=== PATIENT | female | born 1955 | race Caucasian/White ===

== ENCOUNTER 2017-06-27 20:44 | Observation (INO) | payer BC ==
[~2017-06-27] VITALS: Ht 160 cm; Wt 112.0 kg
[~2017-06-27 20:44] MED LIST: ASPI81 PO; ESTR0.053 TD; ISOS30 PO; LEVO50TA4 PO; METO50CR PO; NITR0.4S SL; OMEP20TA PO
[2017-06-27 20:48] VITALS: BP 140/90; PULSE 94; RESP 16; TEMP 97.8; O2SAT 98
[2017-06-27] MEDS ORDERED: OMEP20TA PO (21:14)
[2017-06-27] MEDS ORDERED: ISOS30TA3 PO (21:14)
[2017-06-27] MEDS ORDERED: BIOTCAP PO (21:14)
[2017-06-27] MEDS ORDERED: CALC1TAB87 PO (21:14)
[2017-06-27] MEDS ORDERED: METO100T9 PO (21:14)
[2017-06-27] MEDS ORDERED: VIVE0.05 T-DERMAL (21:14)
[2017-06-27] MEDS ORDERED: ASPI81CH37 CHEW (21:14)
[2017-06-27] MEDS ORDERED: LEVO50TA4 PO (21:14)
--- NOTE | 2017-06-27 21:40 | PD ---
HPI Chief Complaint: Cardiac Complaint Time Seen by Provider: 21:31 Travel History International Travel<30 days: No Contact w/Intl Traveler<30days: No Traveled to known affect area: No History of Present Illness HPI 61 year-old female presents to the emergency department by private transportation the care of her daughter for evaluation of not feeling well with chest discomfort burning in nature with tingling and feeling short of breath. Patient has history of atrial fibrillation and December 2015 underwent cardiac catheterization by her route manager Dr. Keyla palacios which showed minimal coronary vessel disease and normal LV function with recommendation for medical management. Patient was reportedly prescribed sublingual nitroglycerin to use as needed for chest discomfort/chest pain. Patient's symptoms this evening began around 6:30 results spontaneously then recurred at 7:30 at which time she took a sublingual nitroglycerin and her discomfort/pressure of 5/10 in intensity decreased to 3/10 in intensity. Patient denies any pleuritic pain or hemoptysis. Patient's had no lower extremity pain or swelling. Patient's had no fever or chills. Patient states symptoms began while at rest. Patient has had no change in her medications. No recent long distance travel protracted bedrest her surgical procedure. Patient did take one 81 mg aspirin prior to arrival to the emergency department. Patient's had no change in medications. At this time is otherwise unable to describe exacerbating or alleviating factors other than aforementioned. PFSH Past Medical History Narrative Medical Atrial fibrillation mild epicardial coronary artery disease hypertension hypothyroidism hysterectomy cardiac catheterization no tobacco use nursing notes reviewed Hx Anticoagulant Therapy: Yes (ASA 81 MG) Atrial Fibrillation: Yes Cancer: Yes (skin) Cardiovascular Problems: Yes (A.FIB) Chemotherapy: No Congestive Heart Failure: No Cerebrovascular Accident: No Diabetes: No Diminished Hearing: No Endocrine: Yes GERD: No Genitourinary: No Hypertension: Yes Immune Disorder: No Kidney Stones: No Musculoskeletal: No Neurologic: No Psychiatric: No Reproductive: No Respiratory: Yes Immunizations Current: Yes Migraines: No Radiation Therapy: No Renal Failure: No Seizures: No Thyroid Disease: Yes Ulcer: No ?: Not : 2 Para: 2 Past Surgical History AICD: No Gynecologic Surgery: Yes (complete hysterectomy) Hysterectomy: Yes (TOTAL) Insulin Pump: No Joint Replacement: No Pacemaker: No Other Surgery: Yes (see hx) Social History Alcohol Use: No Tobacco Use: No Substance Use: No Allergies-Medications (Allergen,Severity, Reaction): Coded Allergies: No Known Allergies (Verified , 06/27/17) Reported Meds & Prescriptions Reported Meds & Active Scripts Active Reported Omeprazole 20 Mg Tab 20 Mg PO DAILY Aspirin Low Dose (Aspirin) 81 Mg Chew 81 Mg CHEW DAILY Levothyroxine (Levothyroxine Sodium) 50 Mcg Tab 50 Mcg PO DAILY Biotin 5 Mg Cap 5 Mg PO DAILY Calcium 600 with Vitamin D (Calcium Carbonate-Cholecalciferol) 600-400 mg-Unit Tab 1 Tab PO DAILY Metoprolol Succinate ER 24 HR (Metoprolol Succinate) 100 Mg Tab 100 Mg PO DAILY Isosorbide Mononitrate ER (Isosorbide Mononitrate) 30 Mg Kelsey 30 Mg PO DAILY Vivelle-Dot Patch 84 HR (Estradiol) 0.05 Mg/24 Hr Patch 1 Patch T-DERMAL WEEKLY Remove old patch and discard when new patch being placed. Change same days each week. Review of Systems Except as stated in HPI: all other systems reviewed are Neg General / Constitutional: No: Fever, Chills HENT: No: Congestion Cardiovascular: Positive: Chest Pain or Discomfort, No: Palpitations, Diaphoresis, Syncope Respiratory: Positive: Shortness of Breath, No: Cough Gastrointestinal: No: Nausea, Vomiting, Abdominal Pain Genitourinary: No: Flank Pain Musculoskeletal: No: Pain Skin: No Rash Neurologic: No: Weakness Psychiatric: Positive: Anxiety Hematologic/Lymphatic: No: Lymph Node Enlargement Physical Exam Narrative GENERAL: Well-developed well-nourished clinically obese female in no acute distress no respiratory distress SKIN: Warm and dry. HEAD: Normocephalic. EYES: No scleral icterus. No injection or drainage. NECK: Supple, trachea midline. No JVD or lymphadenopathy. CARDIOVASCULAR: Irregular irregular rate and rhythm without murmurs, gallops, or rubs. RESPIRATORY: Breath sounds equal bilaterally. No accessory muscle use. GASTROINTESTINAL: Abdomen soft, non-tender, nondistended. MUSCULOSKELETAL: No cyanosis, or edema. BACK: Nontender without obvious deformity. No CVA tenderness. Data Data Last Documented VS Vital Signs Date Time Temp Pulse Resp B/P (MAP) Pulse Ox O2 Delivery O2 Flow Rate FiO2 06/27/17 20:48 97.8 94 16 140/90 (107) 98 Room Air Orders Orders Electrocardiogram (06/27/17 21:31) Basic Metabolic Panel (Bmp) (06/27/17 21:31) B-Type Natriuretic Peptide (06/27/17 21:31) Ckmb (Isoenzyme) Profile (06/27/17 21:31) Complete Blood Count With Diff (06/27/17 21:31) Magnesium (Mg) (06/27/17 21:31) Prothrombin Time / Inr (Pt) (06/27/17 21:31) Act Partial Throm Time (Ptt) (06/27/17 21:31) Troponin I (06/27/17 21:31) Chest, Single Ap (06/27/17 21:31) Ecg Monitoring (06/27/17:31) Bilateral Bp Monitoring (06/27/17:) Iv Access Insert/Monitor (06/27/17:31) Oximetry (06/27/17 21:31) Oxygen Administration (06/27/17 21:31) Aspirin Chew (Aspirin Chew) (06/27/17 21:45) Sodium Chloride 0.9% Flush (Ns Flush) (06/27/17 21:45) Nitroglycerin Sl (Nitrostat Sl) (06/27/17 21:45) Thyroid Stimulating Hormone (06/27/17 21:41) MDM Medical Decision Making Medical Screen Exam Complete: Yes Emergency Medical Condition: Yes Medical Record Reviewed: Yes Interpretation(s) EKG: Atrial fibrillation with controlled ventricular rate of [address] elevation or injury pattern change noted Differential Diagnosis Chest pain, atypical chest pain, ACS, SC, atrial fibrillation, PE, dehydration, electrolyte disturbance, thyroid dysfunction Narrative Course Patient placed on buildings and grounds supervisor pulse oximeter; IV access obtained; EKG performed which shows atrial fibrillation with controlled ventricular rate and no ST elevation; patient administered aspirin 162 mg as well as sublingual nitroglycerin 0.4 mg as needed for chest discomfort. Specimens collected and sent for resulting Belinda Elizabeth MD Jun 27, 2017 21:40
[2017-06-27] MEDS ORDERED: ASPIRIN 81 MG CHEW TAB PO ONE (21:45)
[2017-06-27] MEDS: NITROGLYCERIN 0.4 MG SL 25 TABS/BTL SL SCH ×2 (21:45→21:50)
[2017-06-27] MEDS ORDERED: SODIUM CHLORIDE 0.9% FLUSH 10 ML FLUSH IVF PRN ×2 (21:45→23:30)
[2017-06-27 22:09] LABS: AUTOMATED NEUTROPHIL # 4.9 TH/MM3 (1.8-7.7); BASOPHIL # 0.1 TH/MM3 (0-0.2); BASOPHIL % 0.8 % (0.0-2.0); EOSINOPHIL # 0.4 TH/MM3 (0-0.4); EOSINOPHIL % 4.5 % (0.0-4.0); HEMATOCRIT 42.8 % (35.0-46.0); HEMO FLAGS DIFF FINAL; LYMPH % 24.9 % (9.0-44.0); LYMPHOCYTE # 1.9 TH/MM3 (1.0-4.8); MEAN CELL VOLUME 88.9 FL (80.0-100.0); MEAN CORPUSCULAR HEMOGLOBIN 30.4 PG (27.0-34.0); MEAN CORPUSCULAR HGB CONC 34.2 % (32.0-36.0); MONO % 7.5 % (0.0-8.0); NEUT % 62.3 % (16.0-70.0); PLATELET COUNT 222 TH/MM3 (150-450); RED BLOOD COUNT 4.82 MIL/MM3 (4.00-5.30); RED CELL DISTRIBUTION WIDTH 13.8 % (11.6-17.2); WHITE BLOOD COUNT 7.8 TH/MM3 (4.0-11.0)
[2017-06-27 22:28] LABS: APTT (PATIENT) 27.8 SEC (24.3-30.1); PROTHROMBIN TIME - PATIENT 10.7 SEC (9.8-11.6)
[2017-06-27 22:32] LABS: ANION GAP 3 MEQ/L (5-15); BICARBONATE 31.5 MEQ/L (21.0-32.0); BLOOD UREA NITROGEN 18 MG/DL (7-18); CHLORIDE 106 MEQ/L (98-107); GLOMERULAR FILTRATION RATE 73 ML/MIN (>89); MAGNESIUM 2.1 MG/DL (1.5-2.5); POTASSIUM 3.9 MEQ/L (3.5-5.1); SODIUM (NA) 140 MEQ/L (136-145)
[2017-06-27 22:35] LABS: CREATINE KINASE 187 U/L (26-192)
[2017-06-27 22:47] LABS: CKMB 3.4 NG/ML (0.5-3.6)
--- NOTE | 2017-06-27 22:47 | RADRPT ---
EXAM DATE/TIME: 06/27/2017 22:06 [facility] COMPARISON: CHEST SINGLE AP, January 17, 2016, 21:51. INDICATIONS : Chest pain. MEDICAL HISTORY : None. SURGICAL HISTORY : None. ENCOUNTER: Initial ACUITY: 1 day PAIN SCORE: 7/10 LOCATION: Bilateral chest FINDINGS: A single view of the chest demonstrates the lungs to be symmetrically aerated without evidence of mas s, infiltrate or effusion. The cardiomediastinal contours are unremarkable. Osseous structures are intact. CONCLUSION: The lungs are clear. Mark Kendrick MD on June 27, 2017 at 22:45 Board Certified Radiologist. This report was verified electronically.
[2017-06-27] MEDS ORDERED: SODIUM CHLORIDE 0.9% FLUSH 10 ML FLUSH IV FLUSH PRN (23:30)
[2017-06-27] MEDS ORDERED: ONDANSETRON HCL 4 MG/2 ML VIAL IV PUSH PRN (23:30)
[2017-06-28] VITALS (9 sets, daily range): BP systolic 110–135; BP diastolic 64–83; PULSE 68–92; RESP 16–20; TEMP 97.7–98.1; O2SAT 95–98
[2017-06-28 01:36] LABS: CREATINE KINASE 202 U/L (26-192)
[2017-06-28 01:48] LABS: CKMB 2.6 NG/ML (0.5-3.6)
[2017-06-28 04:52] LABS: CREATINE KINASE 196 U/L (26-192)
[2017-06-28 05:05] LABS: CKMB 2.3 NG/ML (0.5-3.6)
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
[2017-06-28] MEDS ORDERED: SODIUM CHLORIDE 0.9% FLUSH 10 ML FLUSH IV FLUSH SCH ×2 (09:00)
[2017-06-28] MEDS: ISOSORBIDE MONONITRATE 30 MG TAB PO SCH ×2 (10:46→10:59)
[2017-06-28] MEDS: LEVOTHYROXINE SODIUM 50 MCG TAB PO SCH ×2 (10:46→10:59)
[2017-06-28] MEDS: PANTOPRAZOLE SOD 20 MG DELAYED RELEASE TAB PO SCH ×2 (10:46→10:59)
[2017-06-28] MEDS: METOPROLOL SUCCINATE 50 MG EXTENDED RELEASE TAB PO SCH ×2 (10:47→10:59)
[2017-06-28] MEDS ORDERED: IOHEXOL 350 MG/ML 10 ML VIAL (for RAD DIAG) IVCONTRAST ONE (11:06)
--- NOTE | 2017-06-28 11:09 | RADRPT ---
EXAM DATE/TIME: 06/28/2017 10:38 [facility] COMPARISON: No previous studies available for comparison. INDICATIONS : Chest pain. IV CONTRAST: 75 cc Omnipaque 350 (iohexol) IV RADIATION DOSE: 23.29 CTDIvol (mGy) MEDICAL HISTORY : Cardiovascular disease. Hypertension. SURGICAL HISTORY : Hysterectomy. ENCOUNTER: Initial ACUITY: 1 day PAIN SCALE: 4/10 LOCATION: Bilateral chest TECHNIQUE: Volumetric scanning of the chest was performed using a pulmonary embolism protocol MIP images were re constructed. Using automated exposure control and adjustment of the mA and/or kV according to patien t size, radiation dose was kept as low as reasonably achievable to obtain optimal diagnostic quality images. DICOM format image data is available electronically for review and comparison. Follow-up recommendations for detected pulmonary nodules are based at a minimum on nodule size and pa tient risk factors according to Fleischner Society Guidelines. FINDINGS: PULMONARY ARTERIES: No filling defects are seen in the pulmonary arteries through the segmental level. LUNGS: Minimal bibasilar groundglass opacities likely reflect volume loss. PLEURAE: There is no pleural thickening or pleural effusion. MEDIASTINUM: Heart appears unremarkable. No significant mediastinal adenopathy. MUSCULOSKELETAL: Within normal limits for patient age. MISCELLANEOUS: Diffusely decreased hepatic attenuation without evidence for volume loss in the visualized portions. CONCLUSION: 1. No CT evidence of pulmonary artery embolism through the segmental level. 2. Hepatic steatosis. Pavan Cody MD on June 28, 2017 at 11:05 Board Certified Radiologist. This report was verified electronically.
--- NOTE | 2017-06-28 12:01 | HHI.DCPOC ---
Discharge Care Plan Diagnosis: (1) History of atrial fibrillation (2) Atypical chest pain Goals to Promote Your Health * To prevent worsening of your condition and complications * To maintain your health at the optimal level Directions to Meet Your Goals Take your medications as prescribed Follow your dietary instruction Follow activity as directed Keep your appointments as scheduled Take your immunizations and boosters as scheduled If your symptoms worsen call your PCP, if no PCP go to Urgent Care Center or Emergency Room Smoking is Dangerous to Your Health. Avoid second hand smoke Call the 24-hour hour crisis hotline for domestic abuse at Nano Carter Jun 28, 2017 12:01
--- NOTE | 2017-06-28 13:41 | EKG ---
Date Performed: 06/28/2017 Time Performed: 03:06:01 PTAGE: 61 years EKG: ATRIAL FIBRILLATION ABNORMAL RHYTHM ECG PREVIOUS TRACING : 06/28/2017 00.40 DOCTOR: Adilson Patterson Interpretating Date/Time 06/28/2017 13:40:31
--- NOTE | 2017-06-28 13:43 | EKG ---
Date Performed: 06/28/2017 Time Performed: 00:40:17 PTAGE: 61 years EKG: ATRIAL FIBRILLATION MINIMAL VOLTAGE CRITERIA FOR LVH, CONSIDER NORMAL VARIANT ABNORMAL RHYT HM ECG PREVIOUS TRACING : 06/27/2017 22.01 Since previous tracing, no significant change noted DOCTOR: Adilson Patterson Interpretating Date/Time 06/28/2017 13:41:02
--- NOTE | 2017-06-28 13:43 | EKG ---
Date Performed: 06/27/2017 Time Performed: 22:01:06 PTAGE: 61 years EKG: ATRIAL FIBRILLATION ABNORMAL RHYTHM ECG PREVIOUS TRACING : 01/18/2016 05.46 Since previous tracing, no significant change noted DOCTOR: Adilson Patterson Interpretating Date/Time 06/28/2017 13:41:24
== END 2017-06-28 12:39 | disposition home or self-care (01) ==
LOC: NEPC 20:44 → NEDA 23:27 → NEPFCDU 06-28 00:36
PROVIDERS: ADMIT Internal Medicine Interventional Cardiology; ATTEND Internal Medicine Interventional Cardiology
DX: R07.9 Chest pain, unspecified (principal); I25.10 Atherosclerotic heart disease of native coronary artery without angina pectoris; E66.9 Obesity, unspecified; E03.9 Hypothyroidism, unspecified; Z86.79 Personal history of other diseases of the circulatory system; I48.91 Unspecified atrial fibrillation; I10 Essential (primary) hypertension; Z79.82 Long term (current) use of aspirin; Z79.899 Other long term (current) drug therapy; K21.9 Gastro-esophageal reflux disease without esophagitis; G47.30 Sleep apnea, unspecified; R94.31 Abnormal electrocardiogram [ECG] [EKG]; R06.02 Shortness of breath
CPT/HCPCS: 71010; 71275; 80048; 82550; 82552; 83735; 83880; 84443; 84484; 85025; 85379; 85610; 85730; 93005; 99285; G0378; Q9967